=== PATIENT | female | born 1965 | race Caucasian/White ===

== ENCOUNTER 2018-01-30 17:40 | Emergency (ER) | payer OTHER, SELFPAY ==
[~2018-01-30 17:40] MED LIST: ISOVUE-370 76%-LOCM 1 ML ONE
[2018-01-30 18:25] LABS: #Basophils 0.1 thou/uL (0.0-0.2); #Eosinphils 0.1 thou/uL (0.0-0.7); #Lymphocytes 3.6 thou/uL (1.20-3.40); #Monocytes 0.6 thou/uL (0.11-0.59); #Neutrophils 4.1 thou/uL (1.40-6.50); %Basophils 0.9 % (0.0-1.0); %Eosinophils 1.2 % (0.0-10.0); %Lymphocytes 42.3 % (21.0-51.0); %Monocytes 7.2 % (0.0-10.0); %Neutrophils 48.3 % (42.0-75.0); Hemoglobin 15.7 g/dL (12.0-16.0); Mean Corpuscular HGB CONC 34.8 g/dL (32.0-36.0); Mean Corpuscular Hemoglobin 32.4 pg (27.0-31.0); Mean Corpuscular Volume 92.9 fl (81.0-99.0); Platelet Count 189 thou/uL (130-400); RBC Distribution Width 11.7 % (11.5-14.5); Red Blood Cell (RBC) Count 4.85 mill/uL (4.20-5.40); White Blood Cell (WBC) Count 8.4 thou/uL (4.8-10.8)
--- NOTE | 2018-01-30 18:42 | RAD ---
FRONTAL RADIOGRAPH CHEST: 01/30/18 COMPARISON: 09/19/16 HISTORY: Left sided chest pain for one week. FINDINGS: Numerous calcified punctate nodules noted in both lungs, evidence of granulomatous disease, stable. N o pneumothorax, pleural fluid, focal consolidation, or alveolar edema. Heart and mediastinal contours appear unremarkable. IMPRESSION: No acute findings. POS: [facility]
[2018-01-30 18:49] LABS: ALT (SGPT) 36 U/L (8-55); AST (SGOT) 11 U/L (5-34); Albumin 4.5 g/dL (3.5-5.0); Alkaline Phosphatase 127 U/L (40-150); Anion Gap 14 mmol/L (10-20); BUN (Urea Nitrogen) 14 mg/dL (7.0-18.7); Bilirubin, Total 0.4 mg/dL (0.2-1.2); CK (CPK) 34 U/L (29-168); Calc. Creatinine Clearance 0 mL/min (70-130); Calcium 9.7 mg/dL (7.8-10.44); Carbon Dioxide 20 mmol/L (22-29); Chloride 110 mmol/L (98-107); Estimated GFR-MDRD 75; Globulin 2.7 g/dL (2.4-3.5); Glucose 90 mg/dL (70-105); Potassium 3.8 mmol/L (3.5-5.1); Protein, Total 7.2 g/dL (6.0-8.3); Sodium 140 mmol/L (136-145)
[2018-01-30] MEDS ORDERED: Ketorolac Tromethamine 30 MG/ML VIAL ONE (18:54)
[2018-01-30] MEDS ORDERED: Ondansetron ODT 4 MG TAB ONE (18:54)
[2018-01-30 18:55] LABS: CKMB 0.3 ng/mL (0-6.6); Troponin I Less than 0.010 ng/mL (< 0.028)
--- NOTE | 2018-01-30 19:43 | CT ---
CT ANGIOGRAM CHEST 01/30/18 COMPARISON: None. HISTORY: Chest pain and shortness of breath. TECHNIQUE: Serial axial CT imaging obtained at 2.5 mm intervals from thoracic inlet through upper abdomen with I V contrast using a CT angiogram protocol. Coronal and oblique sagittal 3D reformatted imaging obtaine d. FINDINGS: There is mild reflux of contrast media into the hepatic veins and IVC. Postsurgical clips in right up per quadrant suggests prior cholecystectomy. Upper abdomen appears grossly unremarkable otherwise, as dayan from incidental note of an adrenal adenoma on the left. No pleural, pericardial, or mediastinal fluid. No lymphadenopathy is seen within the chest. There is no pneumothorax noted on either side. There is biapical pleural thickening and biapical subp leural emphysematous change noted, right greater than left. Findings are similar when compared to a c ervical spine CT performed 11/07/14. Multiple scattered granulomata are seen throughout both lungs, evidence of prior granulomatous diseas e. In addition, there is a noncalcified nodule within the left lower lobe on coronal image 71 measuring 7 mm in transverse dimension. This is best seen on axial image 94. There is adequate opacification of the pulmonary arterial vasculature. There is no filling defect see n within either main pulmonary artery or the pulmonary arterial trunk. No filling defect is seen to suggest the presence of acute pulmonary embolism. Osseous structures dem onstrate no acute findings. IMPRESSION: 1. No CT angiographic evidence of acute pulmonary embolism. 2. Numerous additional incidental findings, including a noncalcified 7 mm pulmonary nodule withi n the left lower lobe. Recommend followup CT examination of the chest in six months. Code LN POS: [facility]
[2018-01-30] MEDS ORDERED: HYDROcodone/Acetaminophen 5/325 mg Tablet ONE (19:55)
== END 2018-01-30 20:37 | disposition home or self-care (01) ==
LOC: ERS 17:40
DX: J40 Bronchitis, not specified as acute or chronic (principal); K21.9 Gastro-esophageal reflux disease without esophagitis; E78.5 Hyperlipidemia, unspecified; I25.2 Old myocardial infarction; G43.909 Migraine, unspecified, not intractable, without status migrainosus; J43.9 Emphysema, unspecified; F41.9 Anxiety disorder, unspecified; F31.9 Bipolar disorder, unspecified; F17.210 Nicotine dependence, cigarettes, uncomplicated; Z71.6 Tobacco abuse counseling; Z79.899 Other long term (current) drug therapy
CPT/HCPCS: 36415; 71045; 71275; 80053; 82553; 83690; 84484; 85025; 93005; 94640; 96374; J1885; Q0162

== ENCOUNTER 2018-04-12 09:34 | Emergency (ER) | payer MEDICAID, SELFPAY ==
[2018-04-12] MEDS ORDERED: Ondansetron HCl/PF 4 MG/2 ML Vial ONE (10:08)
[2018-04-12 10:19] LABS: Hemoglobin 13.9 g/dL (12.0-16.0); Mean Corpuscular HGB CONC 33.7 g/dL (32.0-36.0); Mean Corpuscular Hemoglobin 31.4 pg (27.0-31.0); Mean Corpuscular Volume 92.9 fL (78.0-98.0); Mean Platelet Volume 8.3 fL (7.4-10.4); Platelet Count 187 thou/uL (130-400); RBC Distribution Width 11.7 % (11.5-14.5); Red Blood Cell (RBC) Count 4.43 mill/uL (4.20-5.40); White Blood Cell (WBC) Count 5.8 thou/uL (4.8-10.8)
--- NOTE | 2018-04-12 10:23 | CT ---
CT ABDOMEN AND PELVIS WITHOUT CONTRAST: Multiple axial tomograms are obtained through the abdomen and pelvis without IV enhancement. Oral co ntrast was not given. INDICATION: Right flank pain. Abdominal pain. COMPARISON: Comparison is made to CT of the abdomen and pelvis dated 01/15/16. FINDINGS: Lung bases clear. There is a calcified granuloma in the right lung base. The liver, spleen, and pancreas are unremarkable for an unenhanced exam. Post cholecystectomy clips are noted. There is a 2.7 cm left adrenal nodule which has densities consistent with benign adenoma. This is st able. There is a 4 mm calculus in the proximal left ureter producing mild left hydronephrosis. No other urinary tract calculus identified. The bladder is contracted and adequately evaluated. Small bowel loops are normal caliber. Colon is unremarkable with stool throughout the colon. Images through the pelvis show evidence of hysterectomy. Aorta is normal caliber. No adenopathy. IMPRESSION: A 4 mm calculus proximal left ureter producing mild left hydronephrosis. POS: [facility]
[2018-04-12 10:30] LABS: Blood, Urine Large (Negative); Clarity TURBID (Clear); Glucose, Urine (Dipstick) Negative (Negative); Leukocyte Moderate (Negative); Nitrite Negative (Negative); Protein, Urine (Dipstick) 30 mg/dL (Neg-Trace); Specific Gravity, Urine 1.024 (1.002-1.036)
[2018-04-12 10:31] LABS: RBC/HPF GREATER THAN 50-TNTC HPF (0-3)
[2018-04-12 10:34] LABS: Yeast-AUWi Flag 27.6 (0-25.0)
[2018-04-12 10:40] LABS: ALT (SGPT) 8 U/L (8-55); AST (SGOT) 6 U/L (5-34); Alkaline Phosphatase 94 U/L (40-150); Anion Gap 12 mmol/L (10-20); BUN (Urea Nitrogen) 16 mg/dL (7.0-18.7); Bilirubin, Total 0.4 mg/dL (0.2-1.2); Calc. Creatinine Clearance 0 mL/min (70-130); Carbon Dioxide 21 mmol/L (22-29); Chloride 112 mmol/L (98-107); Estimated GFR-MDRD Greater than 90; Globulin 2.3 g/dL (2.4-3.5); Glucose 85 mg/dL (70-105); Lipase 8 U/L (8-78); Potassium 3.3 mmol/L (3.5-5.1); Protein, Total 6.3 g/dL (6.0-8.3); Sodium 142 mmol/L (136-145)
[2018-04-12 10:40] LABS: Bilirubin Unable to Interpret (Negative)
[2018-04-12 10:46] LABS: Eosinophils 2 % (0-10); Lymphocytes 50 % (21-51); MDiff Complete? YES; Monocytes 2 % (0-10); Neutrophil 46 % (42-75); PLT Morphology Comment Appears Adequate; RBC Morphology Normal
[2018-04-12 10:47] LABS: Bacteria/HPF Rare-Few HPF (None Seen); Crystals/HPF 1+ CA OXALATE HPF (Negative); Hyaline Casts/LPF NONE SEEN LPF (0-3 Hyaline)
[2018-04-12] MEDS ORDERED: Ketorolac Tromethamine 30 MG/ML VIAL ONE (10:50)
== END 2018-04-12 12:17 | disposition home or self-care (01) ==
LOC: ERS 09:34
DX: N13.2 Hydronephrosis with renal and ureteral calculous obstruction (principal); K21.9 Gastro-esophageal reflux disease without esophagitis; E78.5 Hyperlipidemia, unspecified; I25.2 Old myocardial infarction; J44.9 Chronic obstructive pulmonary disease, unspecified; F41.9 Anxiety disorder, unspecified; F31.9 Bipolar disorder, unspecified; F17.210 Nicotine dependence, cigarettes, uncomplicated; Z79.899 Other long term (current) drug therapy
CPT/HCPCS: 36415; 74176; 80053; 81003; 81015; 83690; 85025; 87086; 96361; 96374; 96375; 96376; J1885; J2270; J2405

== ENCOUNTER 2018-04-22 08:38 | Day surgery (SDC) | payer MEDICAID ==
[2018-04-21 15:32] VITALS: BMI 22.4
[2018-04-22 10:30] LABS: #Basophils 0.1 thou/uL (0.0-0.2); #Eosinphils 0.3 thou/uL (0.0-0.7); #Lymphocytes 2.8 thou/uL (1.20-3.40); #Monocytes 0.4 thou/uL (0.11-0.59); #Neutrophils 2.7 thou/uL (1.40-6.50); %Basophils 1.2 % (0.0-1.0); %Eosinophils 4.1 % (0.0-10.0); %Lymphocytes 45.2 % (21.0-51.0); %Monocytes 6.1 % (0.0-10.0); %Neutrophils 43.4 % (42.0-75.0); Hemoglobin 14.5 g/dL (12.0-16.0); Mean Corpuscular HGB CONC 33.5 g/dL (32.0-36.0); Mean Corpuscular Hemoglobin 31.9 pg (27.0-31.0); Mean Corpuscular Volume 95.1 fL (78.0-98.0); Mean Platelet Volume 8.7 fL (7.4-10.4); Platelet Count 201 thou/uL (130-400); Red Blood Cell (RBC) Count 4.56 mill/uL (4.20-5.40); White Blood Cell (WBC) Count 6.3 thou/uL (4.8-10.8)
[2018-04-22 10:50] LABS: Anion Gap 10 mmol/L (10-20); BUN (Urea Nitrogen) 10 mg/dL (7.0-18.7); Calc. Creatinine Clearance 80 mL/min (70-130); Calcium 9.5 mg/dL (7.8-10.44); Carbon Dioxide 28 mmol/L (22-29); Chloride 108 mmol/L (98-107); Estimated GFR-MDRD 83; Glucose 85 mg/dL (70-105); Potassium 4.1 mmol/L (3.5-5.1); Sodium 142 mmol/L (136-145)
--- NOTE | 2018-04-22 11:17 | RAD ---
KUB: Date: 04/22/18 HISTORY: Ureteral calculus. Preop film. COMPARISON: CT examination dated 04/12/18. FINDINGS: The bowel gas pattern is nonobstructive. A proximal left ureteral calculus seen on the previous exami nation is not definitively visualized on this study. There are calcifications in the pelvis, but thes e appear to represent phleboliths. IMPRESSION: 1. No definitive renal or ureteral calculus. 2. Postop cholecystectomy change. POS: [facility]
[2018-04-22 11:44] LABS: ADP 91 SEC (39-127); ADP Status Message No Message
[2018-04-22] MEDS ORDERED: Levofloxacin 500 mg/D5W 100 ml Premix Bag ONE (12:03)
[2018-04-22] MEDS ORDERED: Albuterol Sulfate HFA (OR ONLY) ONE (12:51)
[2018-04-22] MEDS ORDERED: Midazolam HCl 2 mg/2 ml Vial ONE (12:53)
[2018-04-22] MEDS ORDERED: Fentanyl 100 MCG/2 ML VIAL ONE (12:59)
[2018-04-22] MEDS ORDERED: Iothalamate Meglumine 60% 50 ML VIAL FS ONE (13:46)
--- NOTE | 2018-04-22 14:07 | RAD ---
RETROGRADE IVP: HISTORY: Left ureteroscopy. COMPARISON: KUB from 04/22/2018. FINDINGS/IMPRESSION: Multiple limited intraoperative fluoroscopic views were performed. Contrast is seen in the left mina l collecting system. No obvious filling defects are seen. Eventually, a double-J ureteral stent is placed, in good position. Cholecystectomy clips are incidentally seen on the right. POS: [facility]
[2018-04-22] MEDS ORDERED: Morphine 4 MG/ML VIAL ONE (15:09)
[2018-04-22] MEDS ORDERED: HYDROcodone/Acetaminophen 5/325 mg Tablet ONE (15:33)
--- NOTE | 2018-04-22 18:02 | OP ---
DATE OF PROCEDURE: 04/22/2018 PREOPERATIVE DIAGNOSIS: Left ureteral stone. POSTOPERATIVE DIAGNOSIS: Left ureteral stone. PROCEDURE PERFORMED: Cystoscopy, left retrograde with stent. SURGEON: Dr. Steffen Smyth. ANESTHESIA: General. ESTIMATED BLOOD LOSS: Minimal. FINDINGS: There is no evidence of urethral stenosis or abnormality. The bladder was free of tumor, foreign body or stone. There were 2 ureteral orifices. There was efflux from both the left and the right ureteral orifice. It was clear. Retrograde study showed a nondilated collecting system. I co demian not see a stone on the fluoroscopy unit. There was in the proximal ureter a small area of filling defect/narrowing that is probably where the stone was. Her preoperative KUB did suggest that it was still there. DRAINS PLACED: A 4.8 x 24 cm stent with string not attached. OPERATIVE TECHNIQUE: Obtain written and verbal consent from the patient. After receiving IV antibio tics, she was taken to the operating suite. She was placed in the supine position on the treatment t able. PlexiPulses were placed on her lower extremities and turned on. She was given a general anest hetic and oral obturator intubation. She was then placed in the dorsal lithotomy position. She was sterilely prepped and draped for cystoscopy. Cystoscopy was performed with a 22-[place] sheath. This was well lubricated, passed under direct vision through the female urethra into the urinary bladder with the aid of a 30-degree lens, a video camera and monitor. The bladder was examined with both the 30 and the 70-degree lens with the findings above. A 5-[place] Pollack catheter was flushed with con trast and placed in the left ureteral orifice. About 6 mL of contrast were injected in retrograde ma nner. The ureter was not dilated. The upper collecting system was not dilated. There was a finding in the proximal ureter as mentioned. A guidewire was easily fed up across this point and then we br ought in a 4.8 stent, passed it over the guidewire and pushed it up into place with the aid of a push er so its proximal end coiled in the renal pelvis and curled around the lower pole collecting system and its distal end coiled in the bladder when the wire was removed. The patient at this point was aw akened and extubated and taken by stretcher to recovery room.
== END 2018-04-22 16:30 | disposition home or self-care (01) ==
LOC: SDC 08:38
PROVIDERS: ATTEND Urology
PROC: 0T778DZ Dilation of Left Ureter with Intraluminal Device, Via Natural or Artificial Opening Endoscopic (ICD-10-PCS; principal; 2018-04-22)
DX: N20.1 Calculus of ureter (principal); I10 Essential (primary) hypertension; F41.8 Other specified anxiety disorders; K21.9 Gastro-esophageal reflux disease without esophagitis; Z79.82 Long term (current) use of aspirin; Z79.899 Other long term (current) drug therapy
CPT/HCPCS: 36415; 74018; 74420; 80048; 85025; 85576; 96374; C1758; J1956; J2250; J2270; J3010; Q9961

== ENCOUNTER 2018-04-29 12:42 | Day surgery (SDC) | payer MEDICAID ==
[2018-04-28 13:32] VITALS: BMI 22.4
[2018-04-29] MEDS ORDERED: Levofloxacin 500 mg/D5W 100 ml Premix Bag ONE (12:58)
[2018-04-29] MEDS ORDERED: Iothalamate Meglumine 60% 50 ML VIAL FS ONE (16:13)
[2018-04-29] MEDS ORDERED: Fentanyl 100 MCG/2 ML VIAL ONE ×4 (16:16→18:25)
--- NOTE | 2018-04-30 02:50 | OP ---
DATE OF PROCEDURE: 04/29/2018 PREOPERATIVE DIAGNOSIS: Left renal stone, left ureteral stent. POSTOPERATIVE DIAGNOSIS: Left renal stone, left ureteral stent. PROCEDURE PERFORMED: Cystoscopy, left ureteral balloon dilatation, left rigid ureteroscopy with ston e retrieval. SURGEON: Dr. Steffen Smyth. ANESTHETIC: General. ESTIMATED BLOOD LOSS: Less than 25 mL DRAINS PLACED: A 4.8 x 24 cm left double-J stent. FINDINGS: There is a distal left ureteral stone into pieces. OPERATIVE TECHNIQUE: After obtain written and verbal consent from the patient, she was taken to the operating suite. She had received some IV antibiotics. She was placed in the supine position on chandu atment table. She was given a general anesthetic and oral obturator intubation. She was then placed in the dorsal lithotomy position, sterilely prepped and draped. The fluoroscopy unit was used for i maging and she was positioned under it. The stent was in good position. A rigid cystoscopy was done with a 24 Sami sheath, this was well lubricated and passed under direct vision through the female urethra and into the urinary bladder with the aid of a 30 degree lens and a video camera and monitor. The distal end of the indwelling stent was grasped and brought out through the urethral meatus and a guidewire was fed through the stent and pushed up in the region of the renal pelvis and the stent w as removed over the guidewire and discarded. At this point, we brought in a small caliber graduated rigid ureteroscope and under direct vision passed this through the female urethra into the bladder us ing video monitor. This was placed adjacent to the guidewire would not easily at all go up the left ureter and for this reason a second guidewire was passed up adjacent to it. We then tried to go over with that guidewire with the ureteroscope and could not easily get it by this region, so we did not push that instead brought in a balloon dilator and placed and crossed one of our guidewires and then dilated the balloon at 8 atmospheres at 1 minute, deflated the balloon and removing it and then we we re able to go adjacent to this guidewire with the rigid scope. Just proximal to the intramural urete r, we found the stone into pieces, basketed each of them and removed them. We will send them off for pathology. We went up to about mid ureter, did not see anything further of any abnormality and at t his point this was most likely the stone that was causing her problems that she had only had one ston e on her initial CAT scan. At this point, the ureteroscope was removed. The guidewire was backloade d through the rigid cystoscope and a 5-Sami Pollack catheter was placed over the guidewire and up i nto the urethra and renal pelvis. Contrast was injected filling out the renal pelvis and the entire ureter. There was no extravasation. There were some small filling defects most likely related a lit tle bit of blood clot perhaps some air bubbles nothing persistent. The guidewires in place. The ope n-ended catheter was removed. A 4.8 x 24 cm double-J stent was passed over the guidewire pushed up i n place with the aide of a pusher renal pelvis when the wire was removed and the distal end coi led in the bladder. String was left exiting the urethral meatus, it was cut so it came out a few henrietta timeters. At this point, she was taken out of dorsal lithotomy position, awakened, extubated, and ta db by delaney to the recovery room.
--- NOTE | 2018-04-30 08:32 | RAD ---
LEFT RETROGRADE PYELOGRAM: HISTORY: Left proximal uretic calculus. FINDINGS/IMPRESSION: Four spot fluoroscopic intraoperative images during a left retrograde pyelogram demonstrate opacifica tion of the left pelvicalyceal system and ureter and placement of a left ureteral stent. POS: [facility]
== END 2018-04-29 19:10 | disposition home or self-care (01) ==
LOC: SDC 12:42
PROVIDERS: ATTEND Urology
PROC: 0T778DZ Dilation of Left Ureter with Intraluminal Device, Via Natural or Artificial Opening Endoscopic (ICD-10-PCS; principal; 2018-04-29)
DX: N20.2 Calculus of kidney with calculus of ureter (principal); I10 Essential (primary) hypertension; J44.9 Chronic obstructive pulmonary disease, unspecified; F32.9 Major depressive disorder, single episode, unspecified; Z79.899 Other long term (current) drug therapy
CPT/HCPCS: 74420; 82365; 88300; 96374; C1758; J1956; J3010; Q9961

== ENCOUNTER 2018-12-14 15:25 | Emergency (ER) | payer OTHER ==
--- NOTE | 2018-12-14 17:48 | RAD ---
EXAM: AP PELVIS: History: Right hip pain and right leg numbness. Comparison: 06-25-16 FINDINGS: No fracture, dislocation, or other acute process. IMPRESSION: Unremarkable AP pelvis. POS: [facility]
--- NOTE | 2018-12-14 17:49 | RAD ---
EXAM: RIGHT HIP TWO VIEWS: History: Right leg numbness and right hip pain. FINDINGS/IMPRESSION: No fracture, dislocation, or other significant acute osseous abnormality. POS: [facility]
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
[2018-12-14] MEDS ORDERED: Acetaminophen 500 MG TAB ONE (21:05)
[2018-12-14] MEDS ORDERED: Ondansetron ODT 4 MG TAB ONE (21:05)
[2018-12-14] MEDS ORDERED: Morphine 4 MG/ML VIAL ONE (21:05)
== END 2018-12-14 22:15 | disposition home or self-care (01) ==
LOC: ERS 15:25
DX: M54.31 Sciatica, right side (principal); M25.551 Pain in right hip; I25.2 Old myocardial infarction; G43.909 Migraine, unspecified, not intractable, without status migrainosus; J44.9 Chronic obstructive pulmonary disease, unspecified; F41.9 Anxiety disorder, unspecified; F31.9 Bipolar disorder, unspecified; F17.210 Nicotine dependence, cigarettes, uncomplicated; K21.9 Gastro-esophageal reflux disease without esophagitis; Z79.899 Other long term (current) drug therapy; V09.9XXA Pedestrian injured in unspecified transport accident, initial encounter; Y92.481 Parking lot as the place of occurrence of the external cause
CPT/HCPCS: 72170; 72192; 96372; J2270; Q0162